=== PATIENT | female | born 1985 | race Caucasian/White ===

== ENCOUNTER 2017-10-20 14:19 | Emergency (ER) | payer OTHER ==
[~2017-10-20] VITALS: Ht 157.5 cm; Wt 62.7 kg
[2017-10-20 15:04] LABS: HEMATOCRIT 39.1 % (36.0-46.0); HEMOGLOBIN 12.6 G/DL (11.9-15.5); MCH 26.9 PG (29.0-34.0); MCHC 32.2 G/DL (30.0-36.0); MCV 83.5 FL (83-99); PLATELET COUNT 256 K/uL (156-360); RBC DIS.WIDTH-CV 14.9 % (11.8-14.6); RBC DIS.WIDTH-SD 45.1 % (39-53); RED BLOOD COUNT 4.68 M/uL (3.80-5.20)
[2017-10-20 15:14] LABS: CHLORIDE 107 mEq/L (99-109); POTASSIUM 4.3 mEq/L (3.7-5.4); SODIUM 141 mEq/L (136-147)
[2017-10-20 15:18] LABS: TOTAL BILIRUBIN 0.3 mg/dL (0.0-1.0)
[2017-10-20 15:22] LABS: AST (GOT) 14 IU/L (2-34)
[2017-10-20 15:32] LABS: QUANTITATIVE HCG < 4.0 MIU/ML
[2017-10-20 15:39] LABS: ALBUMIN 4.2 g/dL (3.2-4.8)
[2017-10-20 15:41] LABS: GLUCOSE 80 mg/dL (70-99)
[2017-10-20 15:42] LABS: TOTAL PROTEIN 7.1 g/dL (6.4-8.3)
[2017-10-20 15:45] LABS: ALKALINE PHOSPHATASE 51 IU/L (3-129); CREATININE 0.8 mg/dL (0.6-1.3)
[2017-10-20 15:46] LABS: UREA NITROGEN (BUN) 9 mg/dL (9-23)
[2017-10-20 15:47] LABS: GFR ESTIMATE (CALCULATED) > 59 mL/min/
[2017-10-20 15:48] LABS: ALT (GPT) 12 IU/L (3-49)
[2017-10-20 17:56] LABS: APPEARANCE CLOUDY ((CLEAR)); BILIRUBIN NEGATIVE; BLOOD LARGE; COLOR YELLOW ((YELLOW)); GLUCOSE (STRIP) NEGATIVE; KETONES NEGATIVE; LEUKOCYTES SMALL; NITRITE NEGATIVE; PROTEIN (STRIP) 30; UROBILINOGEN 0.2 MG/DL (0.2-1.0)
[2017-10-20] MEDS ORDERED: NAPROSYN500 MG PO (18:41)
[2017-10-20 19:46] LABS: EPITHELIAL CELLS 1+ /HPF; RED BLOOD CELLS TNTC /HPF (0-5); WHITE BLOOD CELLS 30-40 /HPF (0-5)
[2017-10-20 19:47] LABS: BACTERIA RARE /HPF; MUCUS TRACE /LPF; UCUL ADDED? YES
[2017-10-20] MEDS ORDERED: KEFLEX500 MG PO (19:54)
[2017-10-20 19:59] VITALS: BP 119/64
== END 2017-10-20 20:00 | disposition home or self-care (01) ==
LOC: EME 14:19
DX: N92.0 Excessive and frequent menstruation with regular cycle (principal); N39.0 Urinary tract infection, site not specified; J45.909 Unspecified asthma, uncomplicated
CPT/HCPCS: 74176; 80053; 81003; 84702; 85027; 87086; 99281; 99284